=== PATIENT | male | born 1980 ===

== ENCOUNTER 2018-09-20 02:02 | Emergency (ER) | payer SELFPAY ==
[2018-09-20 02:06] VITALS: BMI 29.5
[2018-09-20 02:10] VITALS: PULSE 88; RESP 17
--- NOTE | 2018-09-20 03:43 | ED PDOC ---
Arrival/HPI - General Chief Complaint: Alcohol Ingestion Time Seen by Provider: 09/20/18 02:06 Historian: EMS EM Caveat: Intoxicated - History of Present Illness Narrative History of Present Illness (Text): 09/20/18 03:02 unobtainable age, name, and history, presents to the emergency department by EMS for public intoxication. Patient admits to drinking tonight. HPI and ROS limited due to patient's state of intoxication. Context: Street Past Medical History - Provider Review Nursing Documentation Reviewed: Yes - Infectious Disease Hx of Infectious Diseases: None - Psychiatric Hx Substance Use: No Family/Social History - Physician Review Nursing Documentation Reviewed: Yes Family/Social History: No Known Family HX Smoking Status: Unknown If Ever Smoked Hx Alcohol Use: Yes Hx Substance Use: No Allergies/Home Meds Allergies/Adverse Reactions: Allergies Unobtainable Allergy (Verified 09/20/18 02:06) Home Medications: Home Meds Medication Instructions Recorded Confirmed Unobtainable 09/20/18 09/20/18 Review of Systems - Physician Review All systems were reviewed & negative as marked: Yes - Review of Systems Systems not reviewed;Unavailable: Intoxicated Physical Exam Vital Signs Reviewed: Yes Vital Signs Temp Pulse Resp BP Pulse Ox 09/20/18 02:06 98.1 F 88 17 147/84 95 Temperature: Afebrile Blood Pressure: Normal Pulse: Regular Respiratory Rate: Normal Appearance: Positive for: Well-Appearing, Non-Toxic, Comfortable Pain Distress: None Mental Status: Positive for: other (Alert and intoxicated) - Systems Exam Head: Present: Atraumatic, Normocephalic Pupils: Present: PERRL Extroacular Muscles: Present: EOMI Conjunctiva: Present: Normal Mouth: Present: Moist Mucous Membranes Neck: Present: Normal Range of Motion Respiratory/Chest: Present: Clear to Auscultation, Good Air Exchange. No: Respiratory Distress, Accessory Muscle Use Cardiovascular: Present: Regular Rate and Rhythm, Normal S1, S2. No: Murmurs Abdomen: No: Tenderness, Distention, Peritoneal Signs Back: Present: Normal Inspection Upper Extremity: Present: Normal Inspection. No: Cyanosis, Edema Lower Extremity: Present: Normal Inspection. No: Edema Neurological: Present: GCS=15, CN II-XII Intact Skin: Present: Warm, Dry, Normal Color. No: Rashes Psychiatric: Present: Alert, Normal Insight, Normal Concentration, Intoxicated Medical Decision Making ED Course and Treatment: 09/20/18 03:02 Impression: Unobtainable age, name, and history, presents for public intoxication tonight. Plan: -- Sobriety -- Reassess and disposition Progress Notes: 09/20/18 06:23 Patient is awake, alert, and ambulating with a steady gait. Patient is sober and denies any complaints at this time. Patient is stable for discharge. - Scribe Statement The provider has reviewed the documentation as recorded by the To Ledbetter Provider Scribe Attestation: All medical record entries made by the To were at my direction and personally dictated by me. I have reviewed the chart and agree that the record accurately reflects my personal performance of the history, physical exam, medical decision making, and the department course for this patient. I have also personally directed, reviewed, and agree with the discharge instructions and disposition. Disposition/Present on Arrival - Present on Arrival Any Indicators Present on Arrival: No History of DVT/PE: No History of Uncontrolled Diabetes: No Urinary Catheter: No History of Decub. Ulcer: No History Surgical Site Infection Following: None - Disposition Have Diagnosis and Disposition been Completed?: Yes Diagnosis: Alcohol intoxication Disposition: HOME/ ROUTINE Disposition Time: 06:35 Patient Plan: Discharge Condition: GOOD Discharge Instructions (ExitCare): Alcohol Abuse and Alcoholism (DC) Referrals: Alcoholics Anonymous [Outside] - Follow up with primary Forms: [employer] (French)
[2018-09-20 06:57] VITALS: BP 128/76; TEMP 98.2; O2SAT 100
== END 2018-09-20 06:57 | disposition home or self-care (01) ==
LOC: ED 02:02 → EDBD 02:02 → ED 06:57
DX: F10.129 Alcohol abuse with intoxication, unspecified (principal)